=== PATIENT | male | born 1935 | race Caucasian/White ===

== ENCOUNTER 2018-01-02 11:38 | Emergency (ER) | payer OTHER ==
[~2018-01-02] VITALS: Ht 180.3 cm; Wt 73.2 kg
[2018-01-02] MEDS ORDERED: NATURAL SAW PA160 MG PO (11:48)
[2018-01-02] MEDS ORDERED: PREDNISONE20 M1 PO (13:27)
[2018-01-02] MEDS ORDERED: DIFLUCAN150 M1 PO (13:27)
[2018-01-02 13:40] VITALS: BP 144/77
== END 2018-01-02 13:40 | disposition home or self-care (01) ==
LOC: ED 11:38
DX: S40.012A Contusion of left shoulder, initial encounter (principal); S70.02XA Contusion of left hip, initial encounter; R21 Rash and other nonspecific skin eruption; M54.2 Cervicalgia; V49.60XA Unspecified car occupant injured in collision with unspecified motor vehicles in traffic accident, initial encounter; Y92.410 Unspecified street and highway as the place of occurrence of the external cause; Z86.73 Personal history of transient ischemic attack (TIA), and cerebral infarction without residual deficits; Z95.1 Presence of aortocoronary bypass graft
CPT/HCPCS: J7512

== ENCOUNTER → 2018-07-30 | Outpatient (CLI) | payer OTHER ==
[~2018-07-30] MED LIST: DIFLUCAN150 M1 PO; NATURAL SAW PA160 MG PO; PREDNISONE20 M1 PO
== END ==
LOC: RAD 15:43
DX: M54.2 Cervicalgia (principal); M46.82 Other specified inflammatory spondylopathies, cervical region

== ENCOUNTER → 2019-12-26 | Outpatient (CLI) | payer MEDICARE | LOC: RAD 12:04 | DX: R53.1 Weakness (principal) ==

== ENCOUNTER → 2019-12-30 | Outpatient (CLI) | payer MEDICARE | LOC: RAD 07:00 | DX: I67.82 Cerebral ischemia (principal) ==

== ENCOUNTER 2020-07-08 09:32 | Emergency (ER) | payer MEDICARE ==
[~2020-07-08] VITALS: Ht 177.8 cm; Wt 71.4 kg
[2020-07-08 10:29] LABS: EOS # 0.3 (0.04-0.40); EOS % 4.9 % (0.0-4.0); HEMATOCRIT 40.7 % (42.0-52.0); HEMOGLOBIN 12.7 g/dL (13.5-18.0); LYMPH# 1.5 (1.50-4.00); MEAN CELL VOLUME 92 fl (78-100); MEAN CORPUSCULAR HEMOGLOBIN 29 pg (27-31); MEAN CORPUSCULAR HGB CONC 31 g/dL (33-37); MEAN PLATELET VOLUME 10.4 fl (7.4-10.4); MONO # 0.8 (0.20-0.80); NEU # 4.2 (1.40-6.50); PLATELET COUNT 185 K/mm3 (130-400); RED BLOOD COUNT 4.41 M/mm3 (4.20-5.60); RED CELL DISTRIBUTION WIDTH 13.9 % (11.5-14.5); WHITE BLOOD COUNT 6.9 K/mm3 (4.8-10.8)
[2020-07-08 10:32] LABS: POTASSIUM 4.2 mmol/L (3.5-5.1)
[2020-07-08 10:33] LABS: CALCIUM 8.9 mg/dL (8.3-10.5)
[2020-07-08 10:34] LABS: TOTAL PROTEIN 7.1 g/dL (6.2-8.1)
[2020-07-08 10:36] LABS: TOTAL BILIRUBIN 0.7 mg/dL (0.2-1.2)
[2020-07-08] MEDS ORDERED: SIMVASTATIN10 M1 (10:46)
[2020-07-08] MEDS ORDERED: CHILDREN'S ASPI81 M1 PO (10:46)
[2020-07-08] MEDS ORDERED: PRINIVIL10 M1 (10:47)
[2020-07-08 12:46] VITALS: BP 155/87
== END 2020-07-08 11:49 | disposition home or self-care (01) ==
LOC: ED 09:32
PROVIDERS: Nurse Practitioner Primary Care
DX: T88.1XXA Other complications following immunization, not elsewhere classified, initial encounter (principal); R52 Pain, unspecified; R00.1 Bradycardia, unspecified; Z86.73 Personal history of transient ischemic attack (TIA), and cerebral infarction without residual deficits; Z79.82 Long term (current) use of aspirin
CPT/HCPCS: J1885

== ENCOUNTER → 2022-07-08 | Outpatient (CLI) | payer MEDICARE ==
[~2022-07-08] MED LIST changes: +CHILDREN'S ASPI81 M1 PO; +PRINIVIL10 M1; +SIMVASTATIN10 M1
== END ==
LOC: LAB 14:09
DX: R53.83 Other fatigue (principal); Z20.822 Contact with and (suspected) exposure to COVID-19

== ENCOUNTER 2023-06-29 12:19 | Emergency (ER) | payer MEDICARE ==
[~2023-06-29] VITALS: Ht 180.3 cm; Wt 71.4 kg
[2023-06-29 13:02] LABS: BASO # 0.02 K/mm3 (0.02-0.10); EOS # 0.15 K/mm3 (0.04-0.40); EOS % 2.2 % (0.0-4.0); HEMOGLOBIN 12.3 g/dL (13.5-18.0); LYMPH# 1.32 K/mm3 (1.50-4.00); MEAN CELL VOLUME 94 fl (78-100); MEAN CORPUSCULAR HEMOGLOBIN 30 pg (27-31); MEAN CORPUSCULAR HGB CONC 32 g/dL (33-37); MONO # 0.74 K/mm3 (0.20-0.80); PLATELET COUNT 161 K/mm3 (130-400); RED BLOOD COUNT 4.05 M/mm3 (4.20-5.60); RED CELL DISTRIBUTION WIDTH 12.9 % (11.5-14.5)
[2023-06-29 13:13] LABS: SODIUM 139 mmol/L (136-145)
[2023-06-29 13:14] LABS: CALCIUM 9.2 mg/dL (8.3-10.5)
[2023-06-29 13:15] LABS: GLUCOSE 92 mg/dL (75-110); TOTAL PROTEIN 6.9 g/dL (6.2-8.1)
[2023-06-29 13:16] LABS: CARBON DIOXIDE 23 mmol/L (23-31)
[2023-06-29 13:17] LABS: TOTAL BILIRUBIN 0.76 mg/dL (0.2-1.2)
[2023-06-29 13:20] LABS: AST-SGOT 29 U/L (5-34); PROTHROMBIN TIME 10.6 SECONDS (9.0-12.0)
[2023-06-29 13:22] LABS: ALT/SGPT 16 U/L (0-55)
[2023-06-29 13:28] LABS: TROPONIN-I < 0.030 ng/mL (0.00-0.033)
[2023-06-29] MEDS ORDERED: NITROSTAT0.4 M1 SL (14:10)
[2023-06-29] MEDS ORDERED: FINASTERIDE5 M1 PO (14:18)
[2023-06-29] MEDS ORDERED: ATORVASTATIN CA40 MG PO (14:18)
[2023-06-29] MEDS ORDERED: FLOMAX0.4 MG PO (14:18)
[2023-06-29] MEDS ORDERED: CLOPIDOGREL75 M2 PO (14:19)
[2023-06-29] MEDS ORDERED: METOPROLOL SUCC25 M1 PO (14:19)
[2023-06-29 14:30] VITALS: BP 132/78
== END 2023-06-29 14:45 ==
LOC: ED 12:19
PROVIDERS: Nurse Practitioner Family
DX: R07.89 Other chest pain (principal); Z95.0 Presence of cardiac pacemaker